=== PATIENT | female | born 1970 | race Caucasian/White ===

== ENCOUNTER 2017-12-08 16:48 | Emergency (ER) | payer OTHER ==
[~2017-12-08] VITALS: Ht 172.7 cm; Wt 81.8 kg
[~2017-12-08 16:48] MED LIST: PRED50TA PO
[2017-12-08 16:52] VITALS: BP 112/84
== END 2017-12-08 18:07 | disposition home or self-care (01) ==
LOC: ER 16:48
DX: Z77.21 Contact with and (suspected) exposure to potentially hazardous body fluids (principal); Z88.2 Allergy status to sulfonamides; Z90.710 Acquired absence of both cervix and uterus
CPT/HCPCS: 99281

== ENCOUNTER 2018-02-19 11:45 | Outpatient (CLI) | payer OTHER ==
[2018-02-19] MEDS ORDERED: iohexol 300mg/ml 100ml inj. ONE (11:52)
== END 2018-02-19 23:59 | disposition home or self-care (01) ==
LOC: 64 CT 11:45
PROVIDERS: ATTEND Internal Medicine
DX: Z90.11 Acquired absence of right breast and nipple (principal); Z79.899 Other long term (current) drug therapy
CPT/HCPCS: 71250; J7030; Q9967

== ENCOUNTER 2018-02-19 11:53 | Outpatient (CLI) | payer OTHER ==
[2018-02-19 12:43] LABS: BASOPHILS % (AUTO) 0.4 % (0-1); EOSINOPHILS # (AUTO) 0.9 X10'3 (0-0.9); EOSINOPHILS % (AUTO) 11.9 % (0-6); HEMATOCRIT 43.2 % (35.0-45.0); HEMOGLOBIN 14.6 g/dl (12.0-16.0); LYMPHOCYTES # (AUTO) 2.3 X10'3 (1.1-4.8); MEAN CORPUSCULAR HEMOGLOBIN 30.4 PG (27.0-31.0); MEAN CORPUSCULAR HGB CONC 33.9 % (33.0-36.5); MEAN CORPUSCULAR VOLUME 89.9 FL (78-98); MEAN PLATELET VOLUME 9.1 FL (7.4-10.4); MONOCYTES # (AUTO) 0.6 X10'3 (0-0.9); MONOCYTES % (AUTO) 7.5 % (2-12); NEUTROPHILS # (AUTO) 3.7 X10'3 (1.8-7.7); NEUTROPHILS % (AUTO) 49.2 % (42-75); PLATELET COUNT 265 X10'3 (140-440); RED CELL DISTRIBUTION WIDTH 13.8 % (11.5-14.5); WHITE BLOOD COUNT 7.5 X10'3 (4.5-11.0)
[2018-02-19 13:20] LABS: ALANINE AMINOTRANSFERASE 58 U/L (12-78); ALBUMIN 4.1 G/DL (3.4-5.0); ALBUMIN/GLOBULIN RATIO 1.1 (1.1-1.5); ALKALINE PHOSPHATASE 121 IU/L (46-116); ANION GAP 6 (8-16); ASPARTATE AMINO TRANSFERASE 28 U/L (10-37); BILIRUBIN,TOTAL 0.4 MG/DL (0.1-1.0); BLOOD UREA NITROGEN 19 MG/DL (7-18); BUN/CREATININE RATIO 20.9 (6.6-38.0); CALCIUM 9.3 MG/DL (8.5-10.1); CHLORIDE 106 MMOL/L (99-107); CREATINE KINASE 432 U/L (26-192); CREATININE 0.91 MG/DL (0.40-0.90); GLUCOSE 101 MG/DL (70-104); LACTATE DEHYDROGENASE 303 U/L (81-234); POTASSIUM 4.2 MMOL/L (3.5-5.1); SODIUM 141 MMOL/L (135-145); TOTAL CARBON DIOXIDE 28.7 MMOL/L (24-32); TOTAL PROTEIN 7.7 G/DL (6.4-8.2); eGFR 66 ML/MIN
== END 2018-02-19 23:59 | disposition home or self-care (01) ==
LOC: LAB 11:53
PROVIDERS: ATTEND Internal Medicine Rheumatology
DX: G72.9 Myopathy, unspecified (principal); N20.9 Urinary calculus, unspecified; R79.89 Other specified abnormal findings of blood chemistry; Z98.890 Other specified postprocedural states
CPT/HCPCS: 36415; 80053; 82085; 82550; 83615; 83874; 84443; 84550; 85025; 85651

== ENCOUNTER 2018-02-27 14:00 | Outpatient (CLI) | payer OTHER | END 2018-02-27 23:59 | LOC: CARD DIAG 14:00 | PROVIDERS: ATTEND Internal Medicine Rheumatology | DX: I34.9 Nonrheumatic mitral valve disorder, unspecified (principal) | CPT/HCPCS: 93306 ==

== ENCOUNTER 2018-03-22 20:57 | Emergency (ER) | payer OTHER ==
[~2018-03-22] VITALS: Ht 172.7 cm; Wt 87.0 kg
[2018-03-22 22:13] VITALS: BP 122/78
== END 2018-03-22 22:22 | disposition home or self-care (01) ==
LOC: ER 20:57
DX: M79.675 Pain in left toe(s) (principal); Z90.710 Acquired absence of both cervix and uterus; Z98.890 Other specified postprocedural states; Z88.2 Allergy status to sulfonamides; Z88.1 Allergy status to other antibiotic agents; Z79.899 Other long term (current) drug therapy
CPT/HCPCS: 73660; 99284

== ENCOUNTER 2018-07-13 11:06 | Outpatient (CLI) | payer OTHER | END 2018-07-13 23:59 | disposition home or self-care (01) | LOC: 64 CT 11:06 | PROVIDERS: ATTEND Internal Medicine | DX: R91.1 Solitary pulmonary nodule (principal); Z85.3 Personal history of malignant neoplasm of breast | CPT/HCPCS: 71250 ==

== ENCOUNTER 2018-08-19 11:36 | Emergency (ER) | payer OTHER ==
[~2018-08-19] VITALS: Ht 172.7 cm; Wt 88.6 kg
[2018-08-19 11:58] VITALS: BP 127/48
[2018-08-19] MEDS ORDERED: ketorolac trometh inj. 60 MG/2 ML VIAL IM ONE (12:10)
== END 2018-08-19 12:57 | disposition home or self-care (01) ==
LOC: ER 11:36 → EEVIPCON 11:36 → ER 12:57
DX: S46.912A Strain of unspecified muscle, fascia and tendon at shoulder and upper arm level, left arm, initial encounter (principal); M25.312 Other instability, left shoulder; Z88.2 Allergy status to sulfonamides; Z79.899 Other long term (current) drug therapy; Z90.49 Acquired absence of other specified parts of digestive tract; Z90.710 Acquired absence of both cervix and uterus; Z90.12 Acquired absence of left breast and nipple; V43.52XA Car driver injured in collision with other type car in traffic accident, initial encounter; Y93.89 Activity, other specified; Y92.413 State road as the place of occurrence of the external cause; Y99.8 Other external cause status
CPT/HCPCS: 96372; 99283; J1885

== ENCOUNTER 2018-08-25 10:31 | Outpatient (CLI) | payer OTHER | END 2018-08-25 23:59 | disposition home or self-care (01) | LOC: RAD 10:31 | PROVIDERS: ATTEND Internal Medicine | DX: R93.2 Abnormal findings on diagnostic imaging of liver and biliary tract (principal); R10.9 Unspecified abdominal pain; C50.911 Malignant neoplasm of unspecified site of right female breast; Z90.710 Acquired absence of both cervix and uterus | CPT/HCPCS: 76700 ==

== ENCOUNTER 2018-08-25 10:41 | Outpatient (CLI) | payer OTHER | END 2018-08-25 23:59 | disposition home or self-care (01) | LOC: RAD 10:41 | PROVIDERS: ATTEND Family Medicine | DX: M19.012 Primary osteoarthritis, left shoulder (principal); M47.812 Spondylosis without myelopathy or radiculopathy, cervical region; M43.12 Spondylolisthesis, cervical region; Z88.2 Allergy status to sulfonamides; Z88.8 Allergy status to other drugs, medicaments and biological substances; V49.9XXA Car occupant (driver) (passenger) injured in unspecified traffic accident, initial encounter; Y93.89 Activity, other specified; Y92.488 Other paved roadways as the place of occurrence of the external cause; Y99.8 Other external cause status | CPT/HCPCS: 72052; 73030 ==

== ENCOUNTER 2018-09-02 16:19 | Outpatient (CLI) | payer OTHER | END 2018-09-02 23:59 | disposition home or self-care (01) | LOC: RAD 16:19 | PROVIDERS: ATTEND Physician Assistant Surgical | DX: M19.012 Primary osteoarthritis, left shoulder (principal); M54.2 Cervicalgia | CPT/HCPCS: 72141; 73221 ==

== ENCOUNTER 2018-11-05 09:29 | Day surgery (SDC) | payer OTHER ==
[~2018-11-05] VITALS: Ht 172.7 cm; Wt 88.6 kg
[2018-11-05 09:37] VITALS: BP 146/78
[2018-11-05] MEDS ORDERED: DULO60CA45 PO (09:40)
[2018-11-05] MEDS ORDERED: TRAZ-218 PO (09:41)
[2018-11-05] MEDS ORDERED: fentaNYL/PF 50MCG/1 ML 2ML syringe ONE (09:44)
[2018-11-05] MEDS ORDERED: MIDAZolam 5mg/5ml vial ONE ×2 (09:44→09:46)
[2018-11-05] MEDS ORDERED: LETR2.5T23 PO (09:49)
[2018-11-05] MEDS ORDERED: ATOM60CA PO (09:50)
[2018-11-05] MEDS ORDERED: OSC500T PO (09:51)
[2018-11-05] MEDS ORDERED: MULT-933 PO (09:51)
[2018-11-05] MEDS ORDERED: PANT-47 PO (09:51)
[2018-11-05 10:23] VITALS: BP 115/64
[2018-11-05 10:33] VITALS: BP 122/62
[2018-11-05 10:43] VITALS: BP 120/65
[2018-11-05 10:48] VITALS: BP 116/61
== END 2018-11-05 10:56 | disposition home or self-care (01) ==
LOC: GI LAB 09:29
PROVIDERS: ATTEND Internal Medicine Gastroenterology
DX: Z12.11 Encounter for screening for malignant neoplasm of colon (principal); K63.5 Polyp of colon; K63.89 Other specified diseases of intestine; Z88.2 Allergy status to sulfonamides; Z88.1 Allergy status to other antibiotic agents; Z79.891 Long term (current) use of opiate analgesic; Z90.49 Acquired absence of other specified parts of digestive tract; Z90.710 Acquired absence of both cervix and uterus; Z87.39 Personal history of other diseases of the musculoskeletal system and connective tissue; Z85.3 Personal history of malignant neoplasm of breast; Z79.899 Other long term (current) drug therapy; Z88.8 Allergy status to other drugs, medicaments and biological substances; Z98.890 Other specified postprocedural states; Z83.71 Family history of colonic polyps; Z80.0 Family history of malignant neoplasm of digestive organs
CPT/HCPCS: 45380; 99152; 99153; J2250; J3010; J7030; A4620

== ENCOUNTER 2019-02-16 14:38 | Outpatient (CLI) | payer OTHER ==
[~2019-02-16 14:38] MED LIST changes: +ATOM60CA PO; +DULO60CA45 PO; +LETR2.5T23 PO; +MULT-933 PO; +OSC500T PO; +PANT-47 PO; -PRED50TA PO; +TRAZ-251 PO
[2019-02-16 15:27] LABS: BASOPHILS % (AUTO) 0.5 % (0-1); EOSINOPHILS # (AUTO) 0.7 X10'3 (0-0.9); EOSINOPHILS % (AUTO) 8.1 % (0-6); HEMATOCRIT 40.8 % (35.0-45.0); HEMOGLOBIN 13.9 g/dl (12.0-16.0); LYMPHOCYTES # (AUTO) 2.3 X10'3 (1.1-4.8); LYMPHOCYTES % (AUTO) 27.4 % (21-51); MEAN CORPUSCULAR HEMOGLOBIN 30.8 PG (27.0-31.0); MEAN CORPUSCULAR HGB CONC 34.1 g/dL (33.0-36.5); MEAN CORPUSCULAR VOLUME 90.4 FL (78-98); MEAN PLATELET VOLUME 8.7 FL (7.4-10.4); MONOCYTES # (AUTO) 0.6 X10'3 (0-0.9); MONOCYTES % (AUTO) 7.3 % (2-12); NEUTROPHILS # (AUTO) 4.8 X10'3 (1.8-7.7); NEUTROPHILS % (AUTO) 56.7 % (42-75); PLATELET COUNT 263 X10'3 (140-440); RED BLOOD COUNT 4.52 X10'6 (4.20-5.60); RED CELL DISTRIBUTION WIDTH 14.3 % (11.5-14.5); WHITE BLOOD COUNT 8.5 X10'3 (4.5-11.0)
[2019-02-16 15:32] LABS: CLARITY,URINE CLEAR (Clear); COLOR,URINE YELLOW (Yellow); GLUCOSE, URINE NEGATIVE (Neg); KETONES,URINE NEGATIVE (Neg); LEUKOCYTE ESTERASE ,URINE NEGATIVE (Neg); NITRITES, URINE NEGATIVE (Neg); OCCULT BLOOD,URINE NEGATIVE (Neg); PROTEIN,URINE NEGATIVE (Neg); UROBILINOGEN,URINE 0.2 E.U/dL (0.2-1.0)
[2019-02-16 15:47] LABS: UA COLLECTION TYPE CLN CATCH MIDSTREAM
[2019-02-16 15:52] LABS: ANION GAP 8 (8-16); BLOOD UREA NITROGEN 13 MG/DL (7-18); BUN/CREATININE RATIO 14.3 (6.6-38.0); CHLORIDE 105 MMOL/L (99-107); CREATININE 0.91 MG/DL (0.40-0.90); GLUCOSE 123 MG/DL (70-104); POTASSIUM 3.8 MMOL/L (3.5-5.1); SODIUM 140 MMOL/L (135-145); TOTAL CARBON DIOXIDE 26.6 MMOL/L (24-32)
[2019-02-16 15:53] LABS: ALANINE AMINOTRANSFERASE 39 U/L (12-78); ALBUMIN 3.9 G/DL (3.4-5.0); ALBUMIN/GLOBULIN RATIO 1.1 (1.1-1.5); ALKALINE PHOSPHATASE 128 IU/L (46-116); ASPARTATE AMINO TRANSFERASE 21 U/L (10-37); BILIRUBIN,TOTAL 0.3 MG/DL (0.1-1.0); CALCIUM 9.3 MG/DL (8.5-10.1); CREATINE KINASE 267 U/L (26-192); LACTATE DEHYDROGENASE 248 U/L (81-234); TOTAL PROTEIN 7.3 G/DL (6.4-8.2); eGFR 66 ML/MIN
[2019-02-18 13:17] LABS: VITAMIN D, 25-HYDROXY 53.6 ng/mL (30.0-100.0)
[2019-02-19 09:12] LABS: ALDOLASE 5.3 U/L (3.3-10.3)
== END 2019-02-16 23:59 | disposition home or self-care (01) ==
LOC: LAB 14:38
PROVIDERS: ATTEND Internal Medicine Rheumatology
DX: G72.9 Myopathy, unspecified (principal); M47.814 Spondylosis without myelopathy or radiculopathy, thoracic region; R91.8 Other nonspecific abnormal finding of lung field; R59.0 Localized enlarged lymph nodes; R76.0 Raised antibody titer; Z85.3 Personal history of malignant neoplasm of breast
CPT/HCPCS: 36415; 71250; 80053; 81003; 82085; 82306; 82550; 83615; 83735; 83874; 85025

== ENCOUNTER 2019-05-13 08:15 | Outpatient (CLI) | payer OTHER | END 2019-05-13 23:59 | disposition home or self-care (01) | LOC: RAD 08:15 | PROVIDERS: ATTEND Physician Assistant Surgical | DX: Z01.818 Encounter for other preprocedural examination (principal); M19.071 Primary osteoarthritis, right ankle and foot; M25.774 Osteophyte, right foot; M50.122 Cervical disc disorder at C5-C6 level with radiculopathy; M43.13 Spondylolisthesis, cervicothoracic region; M48.03 Spinal stenosis, cervicothoracic region; M81.0 Age-related osteoporosis without current pathological fracture | CPT/HCPCS: 72141; 73630 ==

== ENCOUNTER 2019-05-13 11:28 | Outpatient (CLI) | payer OTHER | END 2019-05-13 13:00 | disposition home or self-care (01) | LOC: ORTHO 11:28 | PROVIDERS: ATTEND Orthopaedic Surgery | DX: M79.674 Pain in right toe(s) (principal) | CPT/HCPCS: G0463 ==

== ENCOUNTER 2019-06-04 09:15 | Emergency (ER) | payer OTHER ==
[~2019-06-04] VITALS: Ht 172.7 cm; Wt 88.0 kg
[2019-06-04 09:22] VITALS: BP 108/65
[2019-06-04] MEDS ORDERED: dexamethasone sod phosphate 10mg/ml inj IM STA (09:56)
[2019-06-04] MEDS ORDERED: ketorolac trometh inj. 60 MG/2 ML VIAL IM ONE (10:00)
[2019-06-04] MEDS ORDERED: acetaminophen 325mg tablet PO ONE (10:00)
[2019-06-04] MEDS ORDERED: ACET-812 PO (10:03)
[2019-06-04] MEDS ORDERED: PRED20TA PO (10:03)
[2019-06-04] MEDS ORDERED: CYCL-1 PO (10:04)
[2019-06-04] MEDS ORDERED: ketorolac trometh. 30mg/ml inj. IM ONE (10:05)
== END 2019-06-04 10:50 | disposition home or self-care (01) ==
LOC: ER 09:16
DX: M54.2 Cervicalgia (principal); G89.29 Other chronic pain; Z90.49 Acquired absence of other specified parts of digestive tract; Z98.890 Other specified postprocedural states; Z90.710 Acquired absence of both cervix and uterus; Z85.3 Personal history of malignant neoplasm of breast; Z88.2 Allergy status to sulfonamides; Z88.1 Allergy status to other antibiotic agents; Z88.8 Allergy status to other drugs, medicaments and biological substances; Z79.899 Other long term (current) drug therapy
CPT/HCPCS: 96372; 99283; J1100; J1885

== ENCOUNTER 2019-10-08 17:12 | Emergency (ER) | payer OTHER ==
[~2019-10-08] VITALS: Ht 172.7 cm; Wt 88.6 kg
[~2019-10-08 17:12] MED LIST changes: +ACET-812 PO; +CYCL-1 PO
[2019-10-08 20:07] VITALS: BP 128/68
--- NOTE | 2019-10-08 20:11 | NUR ---
PT PINK WARM AND DRY PT HAS REDNESS TO LEFT CHEEK BONE DENIES ANY OTHER ISSUES AT THIS TIME.
== END 2019-10-08 22:25 | disposition home or self-care (01) ==
LOC: ER 17:12
DX: S00.83XA Contusion of other part of head, initial encounter (principal); G89.29 Other chronic pain; Z90.49 Acquired absence of other specified parts of digestive tract; Z90.710 Acquired absence of both cervix and uterus; Z98.890 Other specified postprocedural states; Z85.3 Personal history of malignant neoplasm of breast; Z88.8 Allergy status to other drugs, medicaments and biological substances; Z79.899 Other long term (current) drug therapy; W22.8XXA Striking against or struck by other objects, initial encounter; Y93.89 Activity, other specified; Y92.89 Other specified places as the place of occurrence of the external cause; Y99.8 Other external cause status
CPT/HCPCS: 99281

== ENCOUNTER 2019-10-27 06:03 | Emergency (ER) | payer OTHER ==
[~2019-10-27] VITALS: Ht 172.7 cm; Wt 80.0 kg
[2019-10-27] MEDS ORDERED: normal saline 1000ML IV soln IVB ONE (06:05)
[2019-10-27] MEDS ORDERED: ondansetron/PF 4mg/2ml inj IV ONE (06:05)
[2019-10-27] MEDS ORDERED: fentaNYL/PF 50MCG/1 ML 2ML syringe IV ONE (06:15)
[2019-10-27 06:28] LABS: BASOPHILS # (AUTO) 0.1 X10'3 (0-0.2); BASOPHILS % (AUTO) 0.9 % (0-1); EOSINOPHILS # (AUTO) 0.9 X10'3 (0-0.9); EOSINOPHILS % (AUTO) 8.7 % (0-6); HEMATOCRIT 37.1 % (35.0-45.0); HEMOGLOBIN 12.9 g/dl (12.0-16.0); LYMPHOCYTES # (AUTO) 4.2 X10'3 (1.1-4.8); LYMPHOCYTES % (AUTO) 41.8 % (21-51); MEAN CORPUSCULAR HGB CONC 34.9 g/dL (33.0-36.5); MEAN PLATELET VOLUME 8.2 FL (7.4-10.4); MONOCYTES % (AUTO) 9.9 % (2-12); NEUTROPHILS # (AUTO) 3.9 X10'3 (1.8-7.7); NEUTROPHILS % (AUTO) 38.7 % (42-75); PLATELET COUNT 268 X10'3 (140-440); RED BLOOD COUNT 4.17 X10'6 (4.20-5.60); RED CELL DISTRIBUTION WIDTH 13.9 % (11.5-14.5); WHITE BLOOD COUNT 10.1 X10'3 (4.5-11.0)
[2019-10-27] MEDS ORDERED: dextrose 5%-normal saline 1,000 ML IV ONE (06:34)
[2019-10-27] MEDS ORDERED: HYDROmorphone 1 mg/ml syringe IV ONE (06:35)
[2019-10-27] MEDS ORDERED: TETanus/Pertussis (Acell)/Diphther VAC/PF (Tdap-Adult) 0.5ml syringe IMVAC ONE (06:40)
[2019-10-27] MEDS ORDERED: LIDOcaine 1% W/epiNEPHrine 1:100,000 20ml vial SQ ONE (06:40)
[2019-10-27 06:50] LABS: ALANINE AMINOTRANSFERASE 40 U/L (12-78); ALBUMIN 4.1 G/DL (3.4-5.0); ALBUMIN/GLOBULIN RATIO 1.3 (1.1-1.5); ALKALINE PHOSPHATASE 122 IU/L (46-116); ANION GAP 10 (8-16); ASPARTATE AMINO TRANSFERASE 24 U/L (10-37); BILIRUBIN,TOTAL 0.4 MG/DL (0.1-1.0); BLOOD UREA NITROGEN 14 MG/DL (7-18); BUN/CREATININE RATIO 14.4 (6.6-38.0); CALCIUM 9.2 MG/DL (8.5-10.1); CHLORIDE 102 MMOL/L (99-107); CREATININE 0.97 MG/DL (0.40-0.90); GLUCOSE 101 MG/DL (70-104); MAGNESIUM 1.9 MG/DL (1.5-2.4); PHOSPHORUS 3.2 MG/DL (2.3-4.5); POTASSIUM 3.7 MMOL/L (3.5-5.1); SODIUM 141 MMOL/L (135-145); TOTAL CARBON DIOXIDE 29.2 MMOL/L (24-32); TOTAL PROTEIN 7.3 G/DL (6.4-8.2); eGFR 61 ML/MIN
[2019-10-27] MEDS ORDERED: proCHLORperazine 10 MG/2 ml inj IV ONE (07:05)
[2019-10-27] MEDS ORDERED: proMETHazine 25mg tablet PO ONE (07:20)
[2019-10-27 07:30] VITALS: BP 148/65
[2019-10-27] MEDS ORDERED: OXYC-149 PO (07:40)
[2019-10-27] MEDS ORDERED: PROM12.512 PO (07:40)
[2019-11-02] MEDS ORDERED: ACET-812 PO (11:13)
[2019-11-02] MEDS ORDERED: PROM12.512 PO (11:13)
[2019-11-02] MEDS ORDERED: OXYC-149 PO (11:13)
== END 2019-10-27 08:54 | disposition home or self-care (01) ==
LOC: EEVIPCON 06:04 → ER 06:04
DX: S06.0X0A Concussion without loss of consciousness, initial encounter (principal); S01.91XA Laceration without foreign body of unspecified part of head, initial encounter; R55 Syncope and collapse; G89.29 Other chronic pain; Z88.2 Allergy status to sulfonamides; Z79.899 Other long term (current) drug therapy; Z90.49 Acquired absence of other specified parts of digestive tract; Z98.890 Other specified postprocedural states; Z90.710 Acquired absence of both cervix and uterus; W18.39XA Other fall on same level, initial encounter; Y93.89 Activity, other specified; Y92.89 Other specified places as the place of occurrence of the external cause; Y99.0 Civilian activity done for income or pay
CPT/HCPCS: 12001; 36415; 70450; 71045; 72125; 80053; 82948; 83735; 84100; 84484; 85025; 90471; 90715; 93005; 96374; 96375; 99284; J0780; J1170; J2405; J3010; Q0169

== ENCOUNTER 2019-11-03 10:02 | Day surgery (SDC) | payer BC, OTHER ==
[~2019-11-03] VITALS: Ht 172.7 cm; Wt 88.0 kg
[2019-11-03] VITALS (8 sets, daily range): BP systolic 96–127; BP diastolic 51–76
[~2019-11-03 10:02] MED LIST changes: -CYCL-1 PO; +OXYC-149 PO; +PROM12.512 PO; +cefazolin/dext.iso 2gm/100ml 100 ML IV ONE; +famotidine 10mg tablet PO ONE; +ringers solution, lacted 1,000 ML IV SCH
[2019-11-03] MEDS ORDERED: ringers solution, lacted 1,000 ML IV SCH (11:23)
[2019-11-03] MEDS ORDERED: ondansetron/PF 4mg/2ml inj IV PRN (11:25)
[2019-11-03] MEDS ORDERED: labetalol 20mg/4ml (5mg/ml) syringe IV PRN (11:25)
[2019-11-03] MEDS ORDERED: fentaNYL/PF 50MCG/1 ML 2ML syringe IV PRN ×2 (11:25)
[2019-11-03] MEDS ORDERED: hydrALAZINE 20mg/ml inj. IV PRN (11:25)
[2019-11-03] MEDS ORDERED: morphine 4 MG/ML inj SYRINge IV PRN ×2 (11:25)
[2019-11-03] MEDS ORDERED: ceFAZolin 1000mg inj ONE (12:12)
[2019-11-03] MEDS ORDERED: fentaNYL/PF 50MCG/1 ML 2ML syringe ONE (12:23)
[2019-11-03] MEDS ORDERED: MIDAZolam 5mg/5ml vial ONE (12:23)
[2019-11-03] MEDS ORDERED: ROPIVAcaine 0.5% (5mg/ml) 30ml vial ONE (12:24)
[2019-11-03] MEDS ORDERED: propofol inj 20 ML IV ONE (12:35)
[2019-11-03] MEDS ORDERED: LIDOcaine 2% (20mg/ml) 5ml vial ONE (12:35)
--- NOTE | 2019-11-03 13:25 | NUR ---
Received from OR via BED, accompanied by Anesthesiologist DR HOPKINS-- and report given by Anesthesiolgist. PATIENT A&OX4, DENIES PAIN, V/S WNL, NEUROVASCULAR CHECKS INTACT, 20G PIV LUE, SCD ON, LEFT ANKLE DRESSING CDI
--- NOTE | 2019-11-03 14:25 | NUR ---
PATIENT A&OX4, DENIES PAIN, V/S WNL, NEUROVASCULAR CHECKS INTACT, 20G PIV LUE D/C, SCD OFF, LEFT ANKLE DRESSING CDI, I HAVE REVIEWED D/C INSTRUCTIONS WITH PATIENT AND FAMILY AND THEY HAVE VERBALIZED UNDERSTANDING. PATIENT D/C HOME WITH ALL BELONGINGS AND FAMILY GAVE TRANSPORT HOME.
== END 2019-11-03 14:25 | disposition home or self-care (01) ==
LOC: PAS 10:02
PROVIDERS: ATTEND Orthopaedic Surgery
DX: T84.84XA Pain due to internal orthopedic prosthetic devices, implants and grafts, initial encounter (principal); J45.909 Unspecified asthma, uncomplicated; F90.9 Attention-deficit hyperactivity disorder, unspecified type; Z90.11 Acquired absence of right breast and nipple; Z90.710 Acquired absence of both cervix and uterus; Z90.49 Acquired absence of other specified parts of digestive tract; Z98.890 Other specified postprocedural states; Z85.3 Personal history of malignant neoplasm of breast; K21.9 Gastro-esophageal reflux disease without esophagitis; Z88.2 Allergy status to sulfonamides; Z88.8 Allergy status to other drugs, medicaments and biological substances; Z79.899 Other long term (current) drug therapy; Y83.8 Other surgical procedures as the cause of abnormal reaction of the patient, or of later complication, without mention of misadventure at the time of the procedure; Y92.89 Other specified places as the place of occurrence of the external cause
CPT/HCPCS: 20680; 82948; J0690; J2001; J2250; J2704; J3010; A4215; A6258; A6449; A7000; J2795; J7120

== ENCOUNTER 2019-11-06 05:17 | Emergency (ER) | payer OTHER ==
[~2019-11-06] VITALS: Ht 172.7 cm; Wt 88.2 kg
[~2019-11-06 05:17] MED LIST changes: -cefazolin/dext.iso 2gm/100ml 100 ML IV ONE; -famotidine 10mg tablet PO ONE; -ringers solution, lacted 1,000 ML IV SCH
--- NOTE | 2019-11-06 05:32 | NUR ---
PT HAD 'HARDWARE' REMOVED FROM LEFT FOOT S/P 3 DAYS WITH EXCESSIVE PAIN TO THE FOOT TONIGHT.
[2019-11-06 06:17] VITALS: BP 126/80
[2019-11-06] MEDS ORDERED: normal saline 1000ML IV soln IVB ONE (06:25)
[2019-11-06] MEDS ORDERED: HYDROmorphone 1 mg/ml syringe IV ONE (06:25)
[2019-11-06] MEDS ORDERED: ondansetron/PF 4mg/2ml inj IV ONE (06:25)
[2019-11-06] MEDS ORDERED: HYDR-4353 PO (07:11)
== END 2019-11-06 07:42 | disposition home or self-care (01) ==
LOC: EEVIPCON 05:18 → ER 05:18
DX: R51 Headache (principal); R05 Cough; J00 Acute nasopharyngitis [common cold]; G89.29 Other chronic pain; R55 Syncope and collapse; Z48.02 Encounter for removal of sutures; Z90.49 Acquired absence of other specified parts of digestive tract; Z90.710 Acquired absence of both cervix and uterus; Z98.890 Other specified postprocedural states; Z85.3 Personal history of malignant neoplasm of breast; Z88.2 Allergy status to sulfonamides; Z88.5 Allergy status to narcotic agent; Z79.899 Other long term (current) drug therapy
CPT/HCPCS: 96361; 96374; 96375; 99283; J1170; J2405; J7030

== ENCOUNTER 2019-11-09 15:00 | Outpatient (CLI) | payer OTHER ==
[~2019-11-09 15:00] MED LIST changes: +HYDR-4353 PO
== END 2019-11-09 23:59 | disposition home or self-care (01) ==
LOC: RAD 15:00
PROVIDERS: ATTEND Physician Assistant Surgical
DX: R05 Cough (principal)
CPT/HCPCS: 71046

== ENCOUNTER 2019-11-12 08:38 | Outpatient (CLI) | payer OTHER ==
[~2019-11-12 08:38] MED LIST changes: +iohexol 300mg/ml 100ml inj. ONE
== END 2019-11-12 23:59 | disposition home or self-care (01) ==
LOC: 64 CT 08:38
PROVIDERS: ATTEND Physician Assistant Surgical
DX: M47.818 Spondylosis without myelopathy or radiculopathy, sacral and sacrococcygeal region (principal); C50.411 Malignant neoplasm of upper-outer quadrant of right female breast; M79.672 Pain in left foot; R55 Syncope and collapse; J18.9 Pneumonia, unspecified organism; Z90.89 Acquired absence of other organs
CPT/HCPCS: 72193; 76882; Q9967; 76536

== ENCOUNTER 2019-11-15 09:06 | Outpatient (CLI) | payer OTHER ==
[~2019-11-15 09:06] MED LIST changes: -iohexol 300mg/ml 100ml inj. ONE
== END 2019-11-15 23:59 | disposition home or self-care (01) ==
LOC: RAD 09:06
PROVIDERS: ATTEND Physician Assistant Surgical
DX: M47.22 Other spondylosis with radiculopathy, cervical region (principal); R20.2 Paresthesia of skin; G95.9 Disease of spinal cord, unspecified; Z88.8 Allergy status to other drugs, medicaments and biological substances
CPT/HCPCS: 72142

== ENCOUNTER 2019-11-15 09:07 | Outpatient (CLI) | payer OTHER ==
[2019-11-15 11:05] LABS: BASOPHILS # (AUTO) 0.1 X10'3 (0-0.2); EOSINOPHILS # (AUTO) 0.8 X10'3 (0-0.9); EOSINOPHILS % (AUTO) 7.6 % (0-6); HEMATOCRIT 40.5 % (35.0-45.0); HEMOGLOBIN 13.8 g/dl (12.0-16.0); LYMPHOCYTES # (AUTO) 3.4 X10'3 (1.1-4.8); LYMPHOCYTES % (AUTO) 33.7 % (21-51); MEAN CORPUSCULAR HEMOGLOBIN 30.2 PG (27.0-31.0); MEAN PLATELET VOLUME 8.7 FL (7.4-10.4); MONOCYTES # (AUTO) 0.7 X10'3 (0-0.9); MONOCYTES % (AUTO) 7.1 % (2-12); NEUTROPHILS # (AUTO) 5.1 X10'3 (1.8-7.7); NEUTROPHILS % (AUTO) 50.6 % (42-75); PLATELET COUNT 394 X10'3 (140-440); RED BLOOD COUNT 4.56 X10'6 (4.20-5.60); RED CELL DISTRIBUTION WIDTH 13.7 % (11.5-14.5); WHITE BLOOD COUNT 10.1 X10'3 (4.5-11.0)
[2019-11-15 11:25] LABS: LARGE PLATELETS FEW; PLATELET ESTIMATE NORMAL
[2019-11-15 11:34] LABS: ALANINE AMINOTRANSFERASE 32 U/L (12-78); ALBUMIN 4.1 G/DL (3.4-5.0); ALBUMIN/GLOBULIN RATIO 0.9 (1.1-1.5); ALKALINE PHOSPHATASE 118 IU/L (46-116); ANION GAP 10 (8-16); ASPARTATE AMINO TRANSFERASE 25 U/L (10-37); BILIRUBIN,TOTAL 0.5 MG/DL (0.1-1.0); BLOOD UREA NITROGEN 17 MG/DL (7-18); BUN/CREATININE RATIO 16.7 (6.6-38.0); CALCIUM 9.3 MG/DL (8.5-10.1); CHLORIDE 103 MMOL/L (99-107); CREATININE 1.02 MG/DL (0.40-0.90); GLUCOSE 84 MG/DL (70-104); LACTATE DEHYDROGENASE 317 U/L (81-234); MAGNESIUM 2.1 MG/DL (1.5-2.4); POTASSIUM 3.6 MMOL/L (3.5-5.1); SODIUM 140 MMOL/L (135-145); TOTAL CARBON DIOXIDE 27.4 MMOL/L (24-32); TOTAL PROTEIN 8.5 G/DL (6.4-8.2); eGFR 57 ML/MIN
[2019-11-15 11:52] LABS: CREATINE KINASE 365 U/L (26-192)
== END 2019-11-15 23:59 | disposition home or self-care (01) ==
LOC: LAB 09:07
PROVIDERS: ATTEND Internal Medicine Rheumatology
DX: G72.9 Myopathy, unspecified (principal)
CPT/HCPCS: 36415; 80053; 82085; 82550; 83615; 83735; 83874; 84443; 85025; 85651

== ENCOUNTER 2019-11-15 09:07 | Outpatient (CLI) | payer OTHER ==
[2019-11-15] MEDS ORDERED: gadobutrol 10mmol/10ml inj. IV ONE (16:47)
== END 2019-11-15 23:59 | disposition home or self-care (01) ==
LOC: RAD 09:07
PROVIDERS: ATTEND Physician Assistant Surgical
DX: C50.411 Malignant neoplasm of upper-outer quadrant of right female breast (principal); M79.672 Pain in left foot; J18.9 Pneumonia, unspecified organism; R55 Syncope and collapse; J32.2 Chronic ethmoidal sinusitis; R90.82 White matter disease, unspecified
CPT/HCPCS: 70553; 72156; 73721; A9585

== ENCOUNTER 2019-11-26 08:52 | Outpatient (CLI) | payer OTHER ==
[2019-11-26] MEDS ORDERED: iohexol 300mg/ml 100ml inj. ONE (08:53)
== END 2019-11-26 23:59 | disposition home or self-care (01) ==
LOC: 64 CT 08:52
PROVIDERS: ATTEND Physician Assistant Surgical
DX: R91.8 Other nonspecific abnormal finding of lung field (principal); R06.02 Shortness of breath; Z90.89 Acquired absence of other organs
CPT/HCPCS: 71260; Q9967

== ENCOUNTER 2019-12-15 12:42 | Outpatient (CLI) | payer OTHER ==
[~2019-12-15 12:42] MED LIST changes: -HYDR-4353 PO
== END 2019-12-15 23:59 | disposition home or self-care (01) ==
LOC: RAD 12:42
PROVIDERS: ATTEND Family Medicine
DX: M79.89 Other specified soft tissue disorders (principal)
CPT/HCPCS: 73630

== ENCOUNTER 2019-12-17 14:48 | Outpatient (CLI) | payer OTHER | END 2019-12-17 23:59 | disposition home or self-care (01) | LOC: CARD DIAG 14:48 | PROVIDERS: ATTEND Physician Assistant Surgical | DX: I08.8 Other rheumatic multiple valve diseases (principal) | CPT/HCPCS: 93306 ==

== ENCOUNTER 2019-12-28 08:31 | Outpatient (CLI) | payer OTHER ==
[2019-12-28] VITALS (10 sets, daily range): BP systolic 111–130; BP diastolic 61–75
[2019-12-29] MEDS ORDERED: CHOL100046 PO (06:59)
[2019-12-29] MEDS ORDERED: red rice yeast (06:59)
[2019-12-29] MEDS ORDERED: TRAZ-256 PO (06:59)
[2019-12-29] MEDS ORDERED: Tumeric Curcumin PO (06:59)
[2019-12-29] MEDS ORDERED: flax seed oil (06:59)
== END 2019-12-28 23:59 | disposition home or self-care (01) ==
LOC: RAD 08:31
PROVIDERS: ATTEND Internal Medicine Cardiovascular Disease
DX: I25.89 Other forms of chronic ischemic heart disease (principal); I65.23 Occlusion and stenosis of bilateral carotid arteries
CPT/HCPCS: 76937; 93017; 93880

== ENCOUNTER 2019-12-28 08:41 | Outpatient (CLI) | payer OTHER ==
[2019-12-29] MEDS ORDERED: flax seed oil (06:59)
[2019-12-29] MEDS ORDERED: TRAZ-256 PO (06:59)
[2019-12-29] MEDS ORDERED: CHOL100046 PO (06:59)
[2019-12-29] MEDS ORDERED: Tumeric Curcumin PO (06:59)
[2019-12-29] MEDS ORDERED: red rice yeast (06:59)
== END 2019-12-28 23:59 | disposition home or self-care (01) ==
LOC: LAB 08:41
PROVIDERS: ATTEND Physician Assistant Surgical
DX: E78.00 Pure hypercholesterolemia, unspecified (principal)
CPT/HCPCS: 78452; A9500

== ENCOUNTER 2019-12-29 06:05 | Day surgery (SDC) | payer OTHER ==
[~2019-12-29] VITALS: Ht 172.7 cm; Wt 86.3 kg
[2019-12-29] VITALS (9 sets, daily range): BP systolic 122–156; BP diastolic 71–94
[2019-12-29] MEDS ORDERED: dextrose 5%-normal saline 1,000 ML IV SCH (06:25)
[2019-12-29] MEDS ORDERED: diphenhydrAMINE 25mg capsule PO PRN (06:25)
[2019-12-29] MEDS ORDERED: LORazepam 0.5 MG tablet PO PRN (06:25)
[2019-12-29] MEDS ORDERED: LIDOcaine/PRILOcaine 5gm cream TP ONE (06:30)
[2019-12-29 06:44] LABS: BASOPHILS # (AUTO) 0.1 X10'3 (0-0.2); BASOPHILS % (AUTO) 0.8 % (0-1); HEMATOCRIT 40.6 % (35.0-45.0); HEMOGLOBIN 13.8 g/dl (12.0-16.0); LYMPHOCYTES # (AUTO) 3.5 X10'3 (1.1-4.8); LYMPHOCYTES % (AUTO) 37.9 % (21-51); MEAN CORPUSCULAR HEMOGLOBIN 30.2 PG (27.0-31.0); MEAN CORPUSCULAR HGB CONC 33.9 g/dL (33.0-36.5); MEAN CORPUSCULAR VOLUME 89.1 FL (78-98); MEAN PLATELET VOLUME 8.8 FL (7.4-10.4); MONOCYTES # (AUTO) 0.9 X10'3 (0-0.9); MONOCYTES % (AUTO) 9.2 % (2-12); NEUTROPHILS # (AUTO) 3.8 X10'3 (1.8-7.7); NEUTROPHILS % (AUTO) 41.1 % (42-75); PLATELET COUNT 277 X10'3 (140-440); RED BLOOD COUNT 4.55 X10'6 (4.20-5.60); RED CELL DISTRIBUTION WIDTH 14.6 % (11.5-14.5); WHITE BLOOD COUNT 9.2 X10'3 (4.5-11.0)
[2019-12-29 06:49] LABS: ANION GAP 7 (8-16); BLOOD UREA NITROGEN 18 MG/DL (7-18); CALCIUM 9.3 MG/DL (8.5-10.1); CHLORIDE 105 MMOL/L (99-107); GLUCOSE 102 MG/DL (70-104); POTASSIUM 4.1 MMOL/L (3.5-5.1); SODIUM 141 MMOL/L (135-145); TOTAL CARBON DIOXIDE 29.3 MMOL/L (24-32); eGFR 66 ML/MIN
[2019-12-29] MEDS ORDERED: flax seed oil (06:59)
[2019-12-29] MEDS ORDERED: CHOL100046 PO (06:59)
[2019-12-29] MEDS ORDERED: Tumeric Curcumin PO (06:59)
[2019-12-29] MEDS ORDERED: TRAZ-256 PO (06:59)
[2019-12-29] MEDS ORDERED: red rice yeast (06:59)
--- NOTE | 2019-12-29 07:10 | NUR ---
Sancho Zaiid at bedside to start pt IV, per pt request. RT AC, 18G and Left AC 20G.
[2019-12-29] MEDS ORDERED: pneumococcal 23-VAL P-sac vacc 25 mcg/0.5ml vial IMVAC ONE (07:15)
[2019-12-29] MEDS ORDERED: nitroGLYCERIN-Tridil 50MG/D5W 250 ML IV ONE (07:24)
[2019-12-29] MEDS ORDERED: LIDOcaine 1% (10mg/ml)w/preservative injection 20ml MDV ONE (07:25)
[2019-12-29] MEDS ORDERED: iohexol 350MG/ML 100ml bottle IV ONE (07:25)
[2019-12-29] MEDS ORDERED: heparin 1,000unit/ml 10ml vial 10 ML ONE (07:25)
[2019-12-29] MEDS ORDERED: midazolam 2 mg/2 ml injection ONE (07:25)
[2019-12-29] MEDS ORDERED: fentaNYL/PF 50MCG/1 ML 2ML syringe ONE (07:25)
[2019-12-29] MEDS ORDERED: verapamil 2.5 mg/ml inj IV ONE (07:25)
[2019-12-29] MEDS ORDERED: iohexol 350 MG/ML 50ML vial IV ONE (07:25)
--- NOTE | 2019-12-29 09:00 | NUR ---
pt back in room. Denies cp, sob. pt denies general pain. pt vs stable as charted. pt sitting up in bed, requesting snack and drink. Will bring this and continue to monitor patient.
[2019-12-29] MEDS ORDERED: HYDROcodone/acetaminophen 5mg/325mg tablet PO PRN (09:25)
[2019-12-29] MEDS ORDERED: HYDROcodone/acetaminophen 10/325mg tab PO PRN (09:25)
[2019-12-29] MEDS ORDERED: normal saline 1000ml 1,000 ML IV SCH (09:25)
--- NOTE | 2019-12-29 09:30 | NUR ---
Pt sitting up in bed, vs stable as charted. pt radial site is soft, no s/s of bleeding. Pt is waiting for breakfast but drinking juice and snacking on yogurt.
--- NOTE | 2019-12-29 10:05 | NUR ---
Pt resting in bed, eyes closed, even respiration. will continue to monitor.
--- NOTE | 2019-12-29 10:30 | NUR ---
pt sitting up to eat breakfast. will continue to monitor.
--- NOTE | 2019-12-29 12:40 | NUR ---
Walked into pt room, pt was adjusting rate on iv pumps. States, "I just wanted to make sure I got all my fluid, my kidney's could use it". Pt was educated that fluids were going to be discontinued at this time for discharge. Pt verbalized understanding.
[2019-12-29] MEDS ORDERED: ACETYLCYSTEINE 200 MG/1 ML 4 ML ORAL SOLUTION PO SCH (20:00)
== END 2019-12-29 13:00 | disposition home or self-care (01) ==
LOC: SSTAY O 06:05
PROVIDERS: ATTEND Internal Medicine Cardiovascular Disease
DX: R94.39 Abnormal result of other cardiovascular function study (principal); I25.10 Atherosclerotic heart disease of native coronary artery without angina pectoris; E78.5 Hyperlipidemia, unspecified; F41.9 Anxiety disorder, unspecified; F32.9 Major depressive disorder, single episode, unspecified; N18.9 Chronic kidney disease, unspecified; F90.9 Attention-deficit hyperactivity disorder, unspecified type; G47.00 Insomnia, unspecified; Z85.3 Personal history of malignant neoplasm of breast; Z79.899 Other long term (current) drug therapy; Z90.710 Acquired absence of both cervix and uterus; Z90.11 Acquired absence of right breast and nipple; Z88.5 Allergy status to narcotic agent; Z88.2 Allergy status to sulfonamides; Z82.49 Family history of ischemic heart disease and other diseases of the circulatory system
CPT/HCPCS: 36415; 80048; 82948; 85025; 85610; 93005; 93458; 99152; 99153; C1769; C1894; J1644; J2001; J2250; J3010; J7042; Q0163; Q9967; A4620; A4663; C1751; J3490

== ENCOUNTER 2020-02-22 12:49 | Outpatient (CLI) | payer OTHER ==
[~2020-02-22 12:49] MED LIST changes: +CHOL100046 PO; -OXYC-149 PO; -PROM12.512 PO; -TRAZ-251 PO; +TRAZ-256 PO; +Tumeric Curcumin PO; +flax seed oil; +red rice yeast
[2020-02-22 14:17] LABS: ALANINE AMINOTRANSFERASE 49 U/L (12-78); ALBUMIN 4.2 G/DL (3.4-5.0); ALBUMIN/GLOBULIN RATIO 1.2 (1.1-1.5); ALKALINE PHOSPHATASE 123 IU/L (46-116); ANION GAP 7 (8-16); ASPARTATE AMINO TRANSFERASE 38 U/L (10-37); BILIRUBIN,TOTAL 0.4 MG/DL (0.1-1.0); BLOOD UREA NITROGEN 25 MG/DL (7-18); BUN/CREATININE RATIO 28.1 (6.6-38.0); CALCIUM 9.5 MG/DL (8.5-10.1); CHLORIDE 105 MMOL/L (99-107); CREATININE 0.89 MG/DL (0.40-0.90); GLUCOSE 107 MG/DL (70-104); POTASSIUM 4.1 MMOL/L (3.5-5.1); SODIUM 138 MMOL/L (135-145); TOTAL CARBON DIOXIDE 25.8 MMOL/L (24-32); TOTAL PROTEIN 7.6 G/DL (6.4-8.2); eGFR 67 ML/MIN
== END 2020-02-22 23:59 | disposition home or self-care (01) ==
LOC: LAB 12:49
PROVIDERS: ATTEND Internal Medicine
DX: C50.911 Malignant neoplasm of unspecified site of right female breast (principal)
CPT/HCPCS: 36415; 80053

== ENCOUNTER 2021-02-22 07:55 | Outpatient (CLI) | payer BC, OTHER ==
[2021-02-22 16:58] LABS: BILIRUBIN,DIRECT 0.1 MG/DL (0-0.3); CHOL/HDL RATIO 3.2 (0.00-4.99); CHOLESTEROL 218 MG/DL (0-200); HDL CHOLESTEROL 69 MG/DL (35-60); LDL CHOLESTEROL 129 MG/DL (50-100); TRIGLYCERIDES 93 MG/DL (20-135)
[2021-02-22] MEDS ORDERED: GADOTERATE MEGLUMINE 7.5 MMOL/15 ML VIAL IV ONE (19:33)
== END 2021-02-22 23:59 | disposition home or self-care (01) ==
LOC: RAD 07:55
PROVIDERS: ATTEND Physician Assistant Surgical
DX: S06.0X0A Concussion without loss of consciousness, initial encounter (principal); M25.78 Osteophyte, vertebrae; M51.15 Intervertebral disc disorders with radiculopathy, thoracolumbar region; M43.15 Spondylolisthesis, thoracolumbar region; M48.02 Spinal stenosis, cervical region; M47.813 Spondylosis without myelopathy or radiculopathy, cervicothoracic region; M47.23 Other spondylosis with radiculopathy, cervicothoracic region; M47.816 Spondylosis without myelopathy or radiculopathy, lumbar region; X58.XXXA Exposure to other specified factors, initial encounter; Y93.89 Activity, other specified; Y92.89 Other specified places as the place of occurrence of the external cause; Y99.8 Other external cause status
CPT/HCPCS: 36415; 70553; 72141; 72146; 72148; 80061; 82248; 82306; A9575

== ENCOUNTER 2021-02-22 07:59 | Outpatient (CLI) | payer BC, OTHER ==
[2021-02-22 13:27] LABS: BASOPHILS # (AUTO) 0.1 X10'3 (0-0.2); BASOPHILS % (AUTO) 0.8 % (0-1); EOSINOPHILS # (AUTO) 0.6 X10'3 (0-0.9); EOSINOPHILS % (AUTO) 7.8 % (0-6); HEMATOCRIT 39.8 % (35.0-45.0); HEMOGLOBIN 13.5 g/dl (12.0-16.0); LYMPHOCYTES # (AUTO) 2.4 X10'3 (1.1-4.8); LYMPHOCYTES % (AUTO) 33.1 % (21-51); MEAN CORPUSCULAR HEMOGLOBIN 30.9 PG (27.0-31.0); MEAN CORPUSCULAR VOLUME 90.9 FL (78-98); MEAN PLATELET VOLUME 9.2 FL (7.4-10.4); MONOCYTES # (AUTO) 0.5 X10'3 (0-0.9); MONOCYTES % (AUTO) 7.6 % (2-12); NEUTROPHILS # (AUTO) 3.6 X10'3 (1.8-7.7); NEUTROPHILS % (AUTO) 50.7 % (42-75); PLATELET COUNT 232 X10'3 (140-440); RED BLOOD COUNT 4.38 X10'6 (4.20-5.60); RED CELL DISTRIBUTION WIDTH 14.3 % (11.5-14.5); WHITE BLOOD COUNT 7.1 X10'3 (4.5-11.0)
[2021-02-22 13:34] LABS: ALANINE AMINOTRANSFERASE 24 U/L (12-78); ALBUMIN 4.1 G/DL (3.4-5.0); ALBUMIN/GLOBULIN RATIO 1.2 (1.1-1.5); ALKALINE PHOSPHATASE 109 IU/L (46-116); ANION GAP 7 (8-16); ASPARTATE AMINO TRANSFERASE 23 U/L (10-37); BILIRUBIN,TOTAL 0.4 MG/DL (0.1-1.0); BLOOD UREA NITROGEN 23 MG/DL (7-18); BUN/CREATININE RATIO 31.9 (6.6-38.0); CALCIUM 9.1 MG/DL (8.5-10.1); CHLORIDE 106 MMOL/L (99-107); CREATININE 0.72 MG/DL (0.40-0.90); GLUCOSE 91 MG/DL (70-104); POTASSIUM 4.1 MMOL/L (3.5-5.1); SODIUM 143 MMOL/L (135-145); TOTAL CARBON DIOXIDE 30.1 MMOL/L (24-32); TOTAL PROTEIN 7.4 G/DL (6.4-8.2); eGFR 85 ML/MIN
[2021-02-22 13:46] LABS: CREATINE KINASE 290 U/L (26-192); LACTATE DEHYDROGENASE 277 U/L (81-234); MAGNESIUM 2.3 MG/DL (1.5-2.4)
== END 2021-02-22 23:59 | disposition home or self-care (01) ==
LOC: LAB 07:59
PROVIDERS: ATTEND Internal Medicine Rheumatology
DX: G72.9 Myopathy, unspecified (principal)
CPT/HCPCS: 36415; 80053; 82085; 82550; 83615; 83735; 83874; 84443; 85025; 85651

== ENCOUNTER 2023-05-07 16:47 | Inpatient (IN) | payer BC ==
[~2023-05-07] VITALS: Ht 172.7 cm; Wt 86.4 kg
[~2023-05-07 16:47] MED LIST changes: -DULO60CA45 PO; +DULO60CA59 PO
--- NOTE | 2023-05-07 17:00 | NUR ---
REFUSING BLOOD DRAW AT THIS TIME.
--- NOTE | 2023-05-07 17:25 | NUR ---
Pt moved from bed 11 to bed 7.
[2023-05-07 19:27] LABS: BASOPHILS # (AUTO) 0.1 X10'3 (0-0.2); BASOPHILS % (AUTO) 0.9 % (0-1); EOSINOPHILS # (AUTO) 0.3 X10'3 (0-0.9); EOSINOPHILS % (AUTO) 3.6 % (0-6); HEMATOCRIT 40.5 % (35.0-45.0); HEMOGLOBIN 13.9 g/dl (12.0-16.0); LYMPHOCYTES # (AUTO) 2.1 X10'3 (1.1-4.8); LYMPHOCYTES % (AUTO) 22.2 % (21-51); MEAN CORPUSCULAR HEMOGLOBIN 30.8 PG (27.0-31.0); MEAN CORPUSCULAR HGB CONC 34.2 g/dL (33.0-36.5); MEAN PLATELET VOLUME 9.6 FL (7.4-10.4); MONOCYTES # (AUTO) 0.6 X10'3 (0-0.9); MONOCYTES % (AUTO) 6.2 % (2-12); NEUTROPHILS # (AUTO) 6.3 X10'3 (1.8-7.7); NEUTROPHILS % (AUTO) 67.1 % (42-75); PLATELET COUNT 227 X10'3 (140-440); RED CELL DISTRIBUTION WIDTH 15.3 % (11.5-14.5); WHITE BLOOD COUNT 9.4 X10'3 (4.5-11.0)
[2023-05-07 19:45] LABS: ALANINE AMINOTRANSFERASE 80 U/L (12-78); ALBUMIN 4.8 G/DL (3.4-5.0); ALBUMIN/GLOBULIN RATIO 1.5 (1.1-1.5); ALKALINE PHOSPHATASE 103 IU/L (46-116); ANION GAP 13 (8-16); ASPARTATE AMINO TRANSFERASE 33 U/L (10-37); BILIRUBIN,TOTAL 0.7 MG/DL (0.1-1.0); BLOOD UREA NITROGEN 18 MG/DL (7-18); BUN/CREATININE RATIO 16.4 (10.0-20.0); CALCIUM 9.8 MG/DL (8.5-10.1); CHLORIDE 103 MMOL/L (99-107); GLUCOSE 98 MG/DL (70-104); POTASSIUM 3.8 MMOL/L (3.5-5.1); SODIUM 143 MMOL/L (135-145); TOTAL CARBON DIOXIDE 27.3 MMOL/L (24-32); eGFR 52 ML/MIN
[2023-05-07 21:03] LABS: CREATINE KINASE 220 U/L (26-192)
[2023-05-07] MEDS ORDERED: ipratropium/albuterol 3ml nebule NEB PRN (21:50)
[2023-05-07] MEDS ORDERED: normal saline 1000ml 1,000 ML IV SCH (21:50)
[2023-05-07] MEDS ORDERED: bisacodyl 10mg suppository rectal RC PRN (21:50)
[2023-05-07] MEDS ORDERED: acetaminophen 325mg tablet PO PRN ×2 (21:50)
[2023-05-07] MEDS ORDERED: mag hydrox/Alum hydrox/simeth 30ml oral suspension PO PRN (21:50)
[2023-05-07] MEDS ORDERED: ondansetron 4mg rapidly disintigrating tab PO PRN (21:50)
[2023-05-07] MEDS ORDERED: ondansetron/PF 4mg/2ml inj IV PRN (21:50)
[2023-05-07] MEDS ORDERED: aspirin 325mg tablet PO ONE (22:00)
--- NOTE | 2023-05-07 22:24 | NUR ---
room upstairs available after flu/covid swab results.
[2023-05-07 22:25] LABS: CLARITY,URINE CLEAR (Clear); GLUCOSE, URINE NEGATIVE (Neg); KETONES,URINE NEGATIVE (Neg); LEUKOCYTE ESTERASE ,URINE NEGATIVE (Neg); NITRITES, URINE NEGATIVE (Neg); OCCULT BLOOD,URINE NEGATIVE (Neg); PH,URINE 5.5 (4.8-8.0); PROTEIN,URINE NEGATIVE (Neg); UA COLLECTION TYPE CLN CATCH MIDSTREAM; UROBILINOGEN,URINE 0.2 E.U/dL (0.2-1.0)
[2023-05-07 22:26] LABS: COLOR,URINE STRAW (Yellow)
[2023-05-07] MEDS: HYDROcodone/acetaminophen 5mg/325mg tablet PO PRN (22:28)
[2023-05-07 22:30] LABS: APTT 24 SECONDS (22-32)
[2023-05-07 22:33] VITALS: PULSE 77; RESP 16; O2SAT 97
[2023-05-07] MEDS ORDERED: ALB0.5UD IH (22:33)
[2023-05-07] MEDS ORDERED: FAMO40TA73 PO (22:33)
[2023-05-07] MEDS ORDERED: TRAZ-256 PO (22:33)
[2023-05-07] MEDS ORDERED: DULO60CA65 PO (22:33)
[2023-05-07] MEDS ORDERED: CALC600T26 PO (22:33)
[2023-05-07] MEDS ORDERED: MULT-227 PO (22:33)
[2023-05-07] MEDS ORDERED: CHOL10006 PO (22:33)
[2023-05-07] MEDS ORDERED: ALPR-624 PO (22:33)
[2023-05-07] MEDS ORDERED: ATOM60CA4 PO (22:33)
[2023-05-07] MEDS ORDERED: FURO40TA4 PO (22:33)
[2023-05-07] MEDS ORDERED: BENZ-111 PO (22:33)
[2023-05-07] MEDS ORDERED: POTA-366 PO (22:33)
[2023-05-07 22:35] LABS: URINE AMPHETAMINE SCREEN NEGATIVE (Neg); URINE BARBITUATE SCREEN NEGATIVE (Neg); URINE BENZODIAZEPINES SCREEN NEGATIVE (Neg); URINE CANNABINOID SCREEN NEGATIVE (Neg); URINE COCAINE SCREEN NEGATIVE (Neg); URINE METHADONE SCREEN NEGATIVE (Neg); URINE OPIATE SCREEN NEGATIVE (Neg); URINE PHENCYCLIDINE SCREEN NEGATIVE (Neg)
--- NOTE | 2023-05-07 22:35 | NUR ---
dr mosqueda at bedside.
--- NOTE | 2023-05-07 22:35 | NUR ---
dr mosqueda notified of increased trop of 66.
[2023-05-07 22:39] LABS: ETHANOL < 10 MG/DL (<10); LIPASE 113 U/L (73-393); MAGNESIUM 2.2 MG/DL (1.5-2.4); PHOSPHORUS 3.9 MG/DL (2.3-4.5)
--- NOTE | 2023-05-07 22:40 | NUR ---
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
[2023-05-07] MEDS: furosemide 10 MG/1 ML 10ml inj IV SCH (22:46)
[2023-05-07] MEDS ORDERED: azithromycin/NS 500mg/250ml 250 ML IV ONE (23:00)
[2023-05-07] MEDS: temazepam 15mg capsule PO PRN (23:17)
--- NOTE | 2023-05-07 23:40 | NUR ---
attempted to call report to the floor. rn unavailable.
[2023-05-08] VITALS (11 sets, daily range): BP systolic 96–148; BP diastolic 52–85; PULSE 70–85; RESP 10–19; TEMP 96.8–99; O2SAT 93–100
--- NOTE | 2023-05-08 | NUR ---
Patient in room PCU 3024. I have received report from Lindsay PETERS and had the opportunity to ask questions and assume patient care.
--- NOTE | 2023-05-08 00:05 | NUR ---
Pt arrived on unit via wheel chair. no apparent distress. Oriented to unit and room. Call light with in reach.
[2023-05-08] MEDS: heparin, porcine 5000 units/ml vial SQ SCH ×3 (00:41→16:28)
[2023-05-08] MEDS: temazepam 15mg capsule PO PRN ×2 (00:41→03:04)
[2023-05-08] MEDS ORDERED: CefTRIAXone/D5W-Rocephin 1gm 50 ML IV ONE (02:32)
[2023-05-08] MEDS: CefTRIAXone/D5W-Rocephin 1gm 50 ML IV SCH ×2 (02:49→20:54)
[2023-05-08] MEDS: HYDROcodone/acetaminophen 5mg/325mg tablet PO PRN ×3 (06:35→20:53)
[2023-05-08] MEDS: docusate sod 100mg capsule PO SCH ×2 (07:42→20:52)
[2023-05-08] MEDS: carVEDilol 3.125mg tablet PO SCH ×2 (07:43→20:53)
[2023-05-08] MEDS: atorvastatin 20mg tablet PO SCH (07:43)
[2023-05-08] MEDS: aspirin 81mg tab.chew PO SCH (07:43)
[2023-05-08] MEDS: pantoprazole 40mg Tablet.DR PO SCH (07:43)
[2023-05-08] MEDS: furosemide 10 MG/1 ML 10ml inj IV SCH (07:44)
[2023-05-08] MEDS: methylPREDNISolone sod succ 125mg/2ml vial IV SCH ×2 (07:44→20:54)
[2023-05-08] MEDS: nitroGLYCERIN 0.2mg/hour patch TD SCH (08:00)
[2023-05-08] MEDS: lisinopril 10 MG tablet PO SCH (08:00)
[2023-05-08 08:01] LABS: BASOPHILS # (AUTO) 0.1 X10'3 (0-0.2); BASOPHILS % (AUTO) 0.8 % (0-1); EOSINOPHILS # (AUTO) 0.5 X10'3 (0-0.9); EOSINOPHILS % (AUTO) 7.7 % (0-6); HEMATOCRIT 38.5 % (35.0-45.0); HEMOGLOBIN 12.9 g/dl (12.0-16.0); LYMPHOCYTES # (AUTO) 2.8 X10'3 (1.1-4.8); LYMPHOCYTES % (AUTO) 40.6 % (21-51); MEAN CORPUSCULAR HEMOGLOBIN 30.2 PG (27.0-31.0); MEAN CORPUSCULAR HGB CONC 33.6 g/dL (33.0-36.5); MEAN PLATELET VOLUME 9.4 FL (7.4-10.4); MONOCYTES # (AUTO) 0.8 X10'3 (0-0.9); NEUTROPHILS # (AUTO) 2.7 X10'3 (1.8-7.7); NEUTROPHILS % (AUTO) 38.9 % (42-75); PLATELET COUNT 203 X10'3 (140-440); RED BLOOD COUNT 4.28 X10'6 (4.20-5.60); WHITE BLOOD COUNT 6.9 X10'3 (4.5-11.0)
[2023-05-08 08:35] LABS: ALANINE AMINOTRANSFERASE 66 U/L (12-78); ALBUMIN 3.8 G/DL (3.4-5.0); ALBUMIN/GLOBULIN RATIO 1.2 (1.1-1.5); ALKALINE PHOSPHATASE 90 IU/L (46-116); ANION GAP 12 (8-16); ASPARTATE AMINO TRANSFERASE 32 U/L (10-37); BILIRUBIN,TOTAL 0.5 MG/DL (0.1-1.0); BLOOD UREA NITROGEN 20 MG/DL (7-18); BUN/CREATININE RATIO 21.3 (10.0-20.0); CALCIUM 8.6 MG/DL (8.5-10.1); CHLORIDE 101 MMOL/L (99-107); CHOL/HDL RATIO 3.5 (0.00-4.99); CHOLESTEROL 226 MG/DL (0-200); CREATININE 0.94 MG/DL (0.40-0.90); GLUCOSE 98 MG/DL (70-104); HDL CHOLESTEROL 64 MG/DL (35-60); LDL CHOLESTEROL 156 MG/DL (50-100); POTASSIUM 3.4 MMOL/L (3.5-5.1); SODIUM 140 MMOL/L (135-145); TOTAL PROTEIN 6.9 G/DL (6.4-8.2); TRIGLYCERIDES 74 MG/DL (20-135); eGFR 62 ML/MIN
[2023-05-08] MEDS ORDERED: potassium Cl 20 mEq SR tablet PO PRN (10:45)
[2023-05-08] MEDS ORDERED: magnesium 2GM in 50ml NS 50 ML IV PRN (10:45)
[2023-05-08] MEDS ORDERED: magnesium 4gm in 100ml NS 100 ML IV PRN (10:45)
[2023-05-08] MEDS ORDERED: potassium Cl 40MEQ/1/2NS 520ml 520 ML IV PRN (10:45)
[2023-05-08] MEDS ORDERED: magnesium Cl slow-release 64mg tablet PO PRN (10:45)
[2023-05-08] MEDS: potassium Cl 20 mEq SR tablet PO PRN ×3 (12:53→20:52)
[2023-05-08] MEDS ORDERED: aminophylline 250mg/10ml inj. IV PRN (12:55)
[2023-05-08] MEDS ORDERED: regadenoson 0.4mg/5ml syringe IV PRN (12:55)
[2023-05-08] MEDS ORDERED: metoprolol tartrate 1mg/ml inj IV PRN (12:55)
[2023-05-08] MEDS ORDERED: nitroGLYCERIN 0.4mg SUBLingual tab SL PRN (12:55)
--- NOTE | 2023-05-08 12:59 | NUR ---
PAGER ID: [phone] MESSAGE: [id number], NORM LOZANO. PT'S MED REC NEEDS TO BE ADDRESSED, PT STATES SHE HAS IMPORTANT MEDICATIONS THAT SHE CAN'T MISS. [facility] [id number]
[2023-05-08] MEDS ORDERED: non-formulary drug (Albuterol Sulfate Nebs* (Proventil Nebs*) 2.5 MG) IH PRN (14:00)
[2023-05-08] MEDS ORDERED: ALPRAZolam 0.5mg tablet PO PRN (14:00)
[2023-05-08] MEDS ORDERED: furosemide 40mg tablet PO SCH (14:00)
--- NOTE | 2023-05-08 15:20 | NUR ---
PAGER ID: [phone] MESSAGE: [id number] - NORM LOZANO. PT CANNOT BRING IN ATOMOXETINE. OUR PHARMACY ONLY HAS 65MG. PT IS WILLING TO TAKE 65MG. CAN WE EDIT THE ORDER? [facility] [phone]
[2023-05-08] MEDS ORDERED: pneumococcal 23-VAL P-sac vacc 25 mcg/0.5ml vial IMVAC ONE (15:25)
[2023-05-08] MEDS: duloxetine 30mg CAPSULE.DR PO SCH (16:27)
[2023-05-08] MEDS: K and/or MAG REPLACEMENT MC SCH (20:00)
[2023-05-08] MEDS: traZODone 50mg tablet PO SCH (20:52)
[2023-05-08] MEDS: benzonatate 100mg capsule PO SCH (20:53)
[2023-05-09] VITALS (22 sets, daily range): BP systolic 89–122; BP diastolic 45–77; PULSE 67–113; RESP 11–18; TEMP 97.8–99.5; O2SAT 94–98
[2023-05-09] MEDS: heparin, porcine 5000 units/ml vial SQ SCH ×2 (00:20→11:02)
[2023-05-09 06:24] LABS: BASOPHILS % (AUTO) 0.1 % (0-1); EOSINOPHILS % (AUTO) 0 % (0-6); HEMATOCRIT 40.2 % (35.0-45.0); HEMOGLOBIN 13.7 g/dl (12.0-16.0); LYMPHOCYTES % (AUTO) 7.8 % (21-51); MEAN CORPUSCULAR HEMOGLOBIN 30.5 PG (27.0-31.0); MEAN CORPUSCULAR HGB CONC 34.1 g/dL (33.0-36.5); MEAN CORPUSCULAR VOLUME 89.5 FL (78-98); MEAN PLATELET VOLUME 9.2 FL (7.4-10.4); MONOCYTES # (AUTO) 0.5 X10'3 (0-0.9); MONOCYTES % (AUTO) 3.5 % (2-12); NEUTROPHILS # (AUTO) 11.7 X10'3 (1.8-7.7); NEUTROPHILS % (AUTO) 88.6 % (42-75); PLATELET COUNT 223 X10'3 (140-440); RED BLOOD COUNT 4.49 X10'6 (4.20-5.60); RED CELL DISTRIBUTION WIDTH 15.3 % (11.5-14.5); WHITE BLOOD COUNT 13.2 X10'3 (4.5-11.0)
--- NOTE | 2023-05-09 06:30 | NUR ---
Patient in room PCU 3024. I have received report from Regina PETERS and had the opportunity to ask questions and assume patient care.
[2023-05-09 06:44] LABS: ALANINE AMINOTRANSFERASE 62 U/L (12-78); ALBUMIN 3.8 G/DL (3.4-5.0); ALBUMIN/GLOBULIN RATIO 1.1 (1.1-1.5); ALKALINE PHOSPHATASE 97 IU/L (46-116); ANION GAP 7 (8-16); ASPARTATE AMINO TRANSFERASE 25 U/L (10-37); BILIRUBIN,TOTAL 0.3 MG/DL (0.1-1.0); BLOOD UREA NITROGEN 29 MG/DL (7-18); CALCIUM 9.3 MG/DL (8.5-10.1); CHLORIDE 103 MMOL/L (99-107); CREATININE 0.88 MG/DL (0.40-0.90); GLUCOSE 157 MG/DL (70-104); POTASSIUM 4.2 MMOL/L (3.5-5.1); SODIUM 137 MMOL/L (135-145); TOTAL CARBON DIOXIDE 27.3 MMOL/L (24-32); TOTAL PROTEIN 7.3 G/DL (6.4-8.2); eGFR 67 ML/MIN
[2023-05-09] MEDS: potassium chloride 10mEq ER tablet PO SCH (08:00)
[2023-05-09] MEDS: furosemide 10 MG/1 ML 10ml inj IV SCH ×2 (08:00→12:50)
[2023-05-09] MEDS: nitroGLYCERIN 0.2mg/hour patch TD SCH (08:00)
[2023-05-09] MEDS ORDERED: duloxetine 30mg CAPSULE.DR PO SCH (08:00)
[2023-05-09] MEDS: lisinopril 10 MG tablet PO SCH (08:00)
[2023-05-09] MEDS: K and/or MAG REPLACEMENT MC SCH ×2 (08:00→20:00)
[2023-05-09] MEDS ORDERED: CefTRIAXone/D5W-Rocephin 1gm 50 ML IV SCH (08:00)
--- NOTE | 2023-05-09 08:05 | NUR ---
pt is resting quietly on bed, skin p/w/d, alert and oriented x3, no c/o dizziness, lightheadedness, amb without assist. Plan to do cardiac stress test at 0845, Alexa PETERS aware. BP meds will be held
[2023-05-09] MEDS: methylPREDNISolone sod succ 125mg/2ml vial IV SCH ×2 (08:36→19:47)
[2023-05-09] MEDS: potassium Cl 20 mEq SR tablet PO PRN (10:56)
[2023-05-09] MEDS: docusate sod 100mg capsule PO SCH ×2 (10:56→19:47)
[2023-05-09] MEDS: benzonatate 100mg capsule PO SCH ×3 (10:56→21:08)
[2023-05-09] MEDS: aspirin 81mg tab.chew PO SCH (10:56)
[2023-05-09] MEDS: atorvastatin 20mg tablet PO SCH (10:57)
[2023-05-09] MEDS: cholecalciferol (vitamin D3) 1,000 unit (25mcg) tablet PO SCH (10:57)
[2023-05-09] MEDS: duloxetine 30mg CAPSULE.DR PO SCH (10:57)
[2023-05-09] MEDS: multivitamins, therapeutics tablet PO SCH (10:57)
[2023-05-09] MEDS: carVEDilol 3.125mg tablet PO SCH ×2 (10:58→19:47)
[2023-05-09] MEDS: calcium carbonate 500mg tablet PO SCH (10:58)
[2023-05-09] MEDS: pantoprazole 40mg Tablet.DR PO SCH (10:58)
[2023-05-09] MEDS: famotidine 20mg tablet PO SCH (10:58)
[2023-05-09] MEDS ORDERED: atomoxetine 40 MG capsule PO SCH (11:40)
[2023-05-09] MEDS: atomoxetine 40 MG capsule PO SCH (12:41)
[2023-05-09] MEDS: atomoxetine 25mg capsule PO SCH (12:41)
[2023-05-09] MEDS ORDERED: proMETHazine 25mg tablet PO ONE (13:40)
[2023-05-09] MEDS ORDERED: heparin 1,000unit/ml 10ml vial 10 ML ONE (15:00)
[2023-05-09] MEDS ORDERED: verapamil 2.5 mg/ml inj IV ONE (15:00)
[2023-05-09] MEDS ORDERED: iohexol 350MG/ML 100ml bottle IV ONE (15:00)
[2023-05-09] MEDS ORDERED: nitroGLYCERIN-Tridil 50MG/D5W 250 ML IV ONE (15:00)
[2023-05-09] MEDS ORDERED: LIDOcaine 1% (10mg/ml) 2ml vial ONE (15:01)
[2023-05-09] MEDS ORDERED: midazolam 1 mg/ML 2ml injection ONE ×2 (15:59→16:37)
[2023-05-09] MEDS ORDERED: fentaNYL/PF 50MCG/1 ML 2ML syringe ONE (15:59)
[2023-05-09] MEDS ORDERED: LIDOcaine 1% 30ml preserv. free vial ONE (16:29)
[2023-05-09] MEDS ORDERED: diphenhydrAMINE 50 mg/ml inj ONE (16:42)
--- NOTE | 2023-05-09 17:08 | NUR ---
Ca;th Addendum: 05/09/23 at 1709 by Alexa Fan RN Elevator Operator Service reports patient has completed procedure and will need to be flat for the next 5 hours, 1L of NS at 150 ml/hr. A change in the Coreg order will also be made.
[2023-05-09] MEDS ORDERED: hydrALAZINE 20mg/ml inj. IV PRN (17:40)
--- NOTE | 2023-05-09 19:08 | NUR ---
Patient in room PCU 3024. I have received report from OKSANA PETERS and had the opportunity to ask questions and assume patient care.
[2023-05-09] MEDS: magnesium hydroxide 30ml (MOM) UD suspension PO PRN (19:46)
[2023-05-09] MEDS: HYDROcodone/acetaminophen 5mg/325mg tablet PO PRN (19:47)
[2023-05-09] MEDS: traZODone 50mg tablet PO SCH (21:08)
[2023-05-09] MEDS: CefTRIAXone/D5W-Rocephin 1gm 50 ML IV SCH (21:08)
--- NOTE | 2023-05-09 21:26 | NUR ---
1L fluids infused per MD order Addendum: 05/09/23 at 2127 by Ashtyn Izquierdo RN Amended: Links added.
[2023-05-10 00:56] VITALS: BP 107/51; PULSE 71
--- NOTE | 2023-05-10 03:10 | NUR ---
Problems reprioritized. Patient report given, questions answered & plan of care reviewed with SANDRO SERNA.
--- NOTE | 2023-05-10 06:14 | NUR ---
Problems reprioritized. Patient report given, questions answered & plan of care reviewed with Megha PETERS.
--- NOTE | 2023-05-10 06:31 | NUR ---
Patient in room PCU 3024. I have received report from Saiar SERNA and had the opportunity to ask questions and assume patient care.
[2023-05-10 06:51] VITALS: BP 92/56; PULSE 68; RESP 16; TEMP 97.9; O2SAT 95
[2023-05-10] MEDS: lisinopril 10 MG tablet PO SCH (08:00)
[2023-05-10] MEDS: nitroGLYCERIN 0.2mg/hour patch TD SCH (08:00)
[2023-05-10] MEDS: benzonatate 100mg capsule PO SCH ×2 (08:00→13:00)
[2023-05-10] MEDS: K and/or MAG REPLACEMENT MC SCH (08:00)
[2023-05-10 08:02] LABS: BASOPHILS # (AUTO) 0.1 X10'3 (0-0.2); BASOPHILS % (AUTO) 0.4 % (0-1); EOSINOPHILS % (AUTO) 0 % (0-6); HEMATOCRIT 39.6 % (35.0-45.0); HEMOGLOBIN 13.1 g/dl (12.0-16.0); LYMPHOCYTES # (AUTO) 1.2 X10'3 (1.1-4.8); LYMPHOCYTES % (AUTO) 9.8 % (21-51); MEAN CORPUSCULAR VOLUME 90.9 FL (78-98); MEAN PLATELET VOLUME 10.2 FL (7.4-10.4); MONOCYTES # (AUTO) 0.6 X10'3 (0-0.9); MONOCYTES % (AUTO) 4.9 % (2-12); NEUTROPHILS # (AUTO) 10.7 X10'3 (1.8-7.7); NEUTROPHILS % (AUTO) 84.9 % (42-75); PLATELET COUNT 213 X10'3 (140-440); RED BLOOD COUNT 4.36 X10'6 (4.20-5.60); RED CELL DISTRIBUTION WIDTH 15.7 % (11.5-14.5); WHITE BLOOD COUNT 12.6 X10'3 (4.5-11.0)
[2023-05-10 08:18] LABS: ALANINE AMINOTRANSFERASE 48 U/L (12-78); ALBUMIN 3.6 G/DL (3.4-5.0); ALBUMIN/GLOBULIN RATIO 1.1 (1.1-1.5); ALKALINE PHOSPHATASE 85 IU/L (46-116); ANION GAP 10 (8-16); ASPARTATE AMINO TRANSFERASE 15 U/L (10-37); BILIRUBIN,TOTAL 0.3 MG/DL (0.1-1.0); BLOOD UREA NITROGEN 36 MG/DL (7-18); BUN/CREATININE RATIO 40.4 (10.0-20.0); CALCIUM 8.9 MG/DL (8.5-10.1); CHLORIDE 103 MMOL/L (99-107); CREATININE 0.89 MG/DL (0.40-0.90); GLUCOSE 121 MG/DL (70-104); POTASSIUM 4.1 MMOL/L (3.5-5.1); SODIUM 140 MMOL/L (135-145); TOTAL CARBON DIOXIDE 27.2 MMOL/L (24-32); TOTAL PROTEIN 6.9 G/DL (6.4-8.2); eGFR 66 ML/MIN
[2023-05-10] MEDS: potassium chloride 10mEq ER tablet PO SCH (08:36)
[2023-05-10] MEDS: aspirin 81mg tab.chew PO SCH (08:36)
[2023-05-10] MEDS: atomoxetine 25mg capsule PO SCH (08:36)
[2023-05-10] MEDS: atomoxetine 40 MG capsule PO SCH (08:36)
[2023-05-10] MEDS: multivitamins, therapeutics tablet PO SCH (08:37)
[2023-05-10] MEDS: pantoprazole 40mg Tablet.DR PO SCH (08:37)
[2023-05-10] MEDS: cholecalciferol (vitamin D3) 1,000 unit (25mcg) tablet PO SCH (08:38)
[2023-05-10] MEDS: carVEDilol 3.125mg tablet PO SCH (08:38)
[2023-05-10] MEDS: methylPREDNISolone sod succ 125mg/2ml vial IV SCH (08:38)
[2023-05-10] MEDS: calcium carbonate 500mg tablet PO SCH (08:38)
[2023-05-10] MEDS: famotidine 20mg tablet PO SCH (08:38)
[2023-05-10] MEDS: atorvastatin 20mg tablet PO SCH (08:38)
[2023-05-10] MEDS: duloxetine 30mg CAPSULE.DR PO SCH (08:38)
[2023-05-10] MEDS: docusate sod 100mg capsule PO SCH (08:39)
[2023-05-10] MEDS: furosemide 10 MG/1 ML 10ml inj IV SCH (08:39)
[2023-05-10] MEDS: magnesium hydroxide 30ml (MOM) UD suspension PO PRN (09:07)
[2023-05-10] MEDS ORDERED: pneumococcal 23-VAL P-sac vacc 25 mcg/0.5ml vial IMVAC ONE (10:00)
[2023-05-10 10:36] VITALS: PULSE 74; RESP 18; O2SAT 98
[2023-05-10 11:29] VITALS: BP 120/61; RESP 16; O2SAT 95
[2023-05-10] MEDS ORDERED: ATOR20TA66 PO (12:42)
[2023-05-10] MEDS ORDERED: ASPI81TA53 PO (12:42)
[2023-05-10] MEDS ORDERED: COR3.125T PO (12:42)
[2023-05-10] MEDS ORDERED: FURO-150 PO (12:45)
--- NOTE | 2023-05-10 15:57 | NUR ---
patient seen by Dr pepe and Dr Harris. Patient is stable and for discharge. All Dc instructions given to patient. Patient DC home in private car with friend in stable condition
== END 2023-05-10 16:01 | disposition home or self-care (01) | DRG 280 ==
LOC: ER 16:48 → ED HOLD 22:00 → MERGE 22:00 → EDBEDREQ 23:39 → PCU 3S 23:40
PROVIDERS: ADMIT Family Medicine; ATTEND Internal Medicine
PROC: 4A023N7 Measurement of Cardiac Sampling and Pressure, Left Heart, Percutaneous Approach (ICD-10-PCS; principal; 2023-05-09)
PROC: B2111ZZ Fluoroscopy of Multiple Coronary Arteries using Low Osmolar Contrast (ICD-10-PCS; 2023-05-09)
PROC: 4A02XM4 Measurement of Cardiac Total Activity, External Approach (ICD-10-PCS; 2023-05-09)
PROC: 3E073KZ Introduction of Other Diagnostic Substance into Coronary Artery, Percutaneous Approach (ICD-10-PCS; 2023-05-09)
PROC: 3E0234Z Introduction of Serum, Toxoid and Vaccine into Muscle, Percutaneous Approach (ICD-10-PCS; 2023-05-10)
DX: I21.4 Non-ST elevation (NSTEMI) myocardial infarction (principal); I50.33 Acute on chronic diastolic (congestive) heart failure; Z20.822 Contact with and (suspected) exposure to COVID-19; E86.0 Dehydration; I11.0 Hypertensive heart disease with heart failure; I25.10 Atherosclerotic heart disease of native coronary artery without angina pectoris; F32.A Depression, unspecified; I34.0 Nonrheumatic mitral (valve) insufficiency; F90.9 Attention-deficit hyperactivity disorder, unspecified type; J40 Bronchitis, not specified as acute or chronic; Z79.82 Long term (current) use of aspirin; Z85.3 Personal history of malignant neoplasm of breast; Z88.2 Allergy status to sulfonamides; Z88.3 Allergy status to other anti-infective agents; Z90.11 Acquired absence of right breast and nipple; Z90.49 Acquired absence of other specified parts of digestive tract; Z90.710 Acquired absence of both cervix and uterus; Z23 Encounter for immunization; Z79.899 Other long term (current) drug therapy
CPT/HCPCS: 36415; 71045; 71250; 76937; 78452; 80053; 80061; 80305; 80320; 81003; 82550; 83036; 83690; 83735; 83880; 84100; 84443; 84484; 85025; 85379; 85610; 85730; 87081; 87502; 87503; 87811; 90732; 93005; 93017; 93306; 93458; 94760; 99152; 99153; 99285; A6258; A9500; C1725; C1760; C1894; G0378; J0280; J0456; J0696; J1200; J1644; J1940; J2250; J2785; J2930; J3010; J3490; J7030; Q0169; Q9967

== ENCOUNTER 2024-03-15 19:40 | Emergency (ER) | payer BC ==
[~2024-03-15] VITALS: Ht 172.7 cm; Wt 81.4 kg
[~2024-03-15 19:40] MED LIST changes: +ALB0.5UD IH; +ALPR-624 PO; +ASPI81TA53 PO; +ATOM60CA4 PO; +ATOR20TA66 PO; +BENZ-111 PO; +CALC600T26 PO; +CHOL10006 PO; +COR3.125T PO; +DULO60CA65 PO; +FAMO40TA73 PO; +FURO-150 PO; +MULT-227 PO; +POTA-366 PO
[2024-03-15 19:59] VITALS: TEMP 98.3
[2024-03-15] MEDS ORDERED: MAGN100T PO (20:07)
[2024-03-15] MEDS ORDERED: METO-384 PO (20:07)
[2024-03-15] MEDS ORDERED: SPIR25TA5 PO (20:07)
[2024-03-15] MEDS ORDERED: METO50TA16 PO (20:07)
[2024-03-15] MEDS ORDERED: MAVA5CAP PO (20:07)
[2024-03-15 20:17] LABS: BASOPHILS # (AUTO) 0.1 X10'3 (0-0.2); EOSINOPHILS # (AUTO) 0.4 X10'3 (0-0.9); EOSINOPHILS % (AUTO) 5.4 % (0-6); HEMATOCRIT 39.8 % (35.0-45.0); HEMOGLOBIN 13.5 g/dl (12.0-16.0); LYMPHOCYTES # (AUTO) 2.5 X10'3 (1.1-4.8); LYMPHOCYTES % (AUTO) 30.7 % (21-51); MEAN CORPUSCULAR HEMOGLOBIN 31.3 PG (27.0-31.0); MEAN CORPUSCULAR HGB CONC 33.9 g/dL (33.0-36.5); MEAN CORPUSCULAR VOLUME 92.3 FL (78-98); MEAN PLATELET VOLUME 8.3 FL (7.4-10.4); MONOCYTES # (AUTO) 0.7 X10'3 (0-0.9); MONOCYTES % (AUTO) 8.4 % (2-12); NEUTROPHILS # (AUTO) 4.4 X10'3 (1.8-7.7); NEUTROPHILS % (AUTO) 54.5 % (42-75); PLATELET COUNT 238 X10'3 (140-440); RED BLOOD COUNT 4.31 X10'6 (4.20-5.60); RED CELL DISTRIBUTION WIDTH 15.7 % (11.5-14.5); WHITE BLOOD COUNT 8.1 X10'3 (4.5-11.0)
[2024-03-15 20:30] LABS: ALBUMIN 4.1 G/DL (3.4-5.0); ANION GAP 8 (8-16); BLOOD UREA NITROGEN 22 MG/DL (7-18); BUN/CREATININE RATIO 21.8 (10.0-20.0); CALCIUM 10.5 MG/DL (8.5-10.1); CHLORIDE 100 MMOL/L (99-107); CREATININE 1.01 MG/DL (0.40-0.90); GLUCOSE 107 MG/DL (70-104); POTASSIUM 3.6 MMOL/L (3.5-5.1); PRO BRAIN NATRIURETIC PEPTIDE 1394 PG/ML (0-125); SODIUM 139 MMOL/L (135-145); TOTAL CARBON DIOXIDE 31.4 MMOL/L (24-32); eCRCL 64 ML/MIN; eGFR 57 ML/MIN
[2024-03-15 21:01] LABS: MAGNESIUM 2.2 MG/DL (1.5-2.4); PHOSPHORUS 4.4 MG/DL (2.3-4.5)
[2024-03-15] MEDS ORDERED: iohexol 350MG/ML 100ml bottle IV ONE (21:17)
[2024-03-15] MEDS: ondansetron 4mg rapidly disintigrating tab PO ONE (21:18)
[2024-03-15] MEDS: HYDROmorphone inj. 0.5 MG/0.5 ML DISP.SYRIN IM ONE (21:22)
[2024-03-15] MEDS: HYDROmorphone inj. 0.5 MG/0.5 ML DISP.SYRIN IV ONE (21:57)
[2024-03-15] MEDS: propofol 10mg/ml 20ml vial IV ONE (22:43)
[2024-03-15] MEDS ORDERED: metoprolol succinate 25mg (24-HOUR) SR. Tablet PO ONE (23:35)
[2024-03-15] MEDS: metoprolol succinate 25mg (24-HOUR) SR. Tablet PO ONE (23:43)
[2024-03-16] VITALS: BP 143/71; PULSE 61; O2SAT 97
[2024-03-16 00:14] VITALS: RESP 14
[2024-03-16] MEDS: HYDROmorphone inj. 0.5 MG/0.5 ML DISP.SYRIN IV ONE (00:14)
== END 2024-03-16 01:05 | disposition home or self-care (01) ==
LOC: ER 19:40
DX: R07.89 Other chest pain (principal); G89.29 Other chronic pain; Z85.3 Personal history of malignant neoplasm of breast; Z90.49 Acquired absence of other specified parts of digestive tract; Z90.710 Acquired absence of both cervix and uterus; Z88.2 Allergy status to sulfonamides; Z88.6 Allergy status to analgesic agent; Z79.2 Long term (current) use of antibiotics; Z79.899 Other long term (current) drug therapy
CPT/HCPCS: 36415; 71045; 71275; 80048; 83735; 83880; 84100; 84484; 85025; 93005; 93308; 96374; 96376; 99285; J1170; J3490; Q9967